=== PATIENT | male | born 1970 | race Caucasian/White ===

== ENCOUNTER 2018-03-23 10:58 | Inpatient (IN) | payer SELFPAY ==
[~2018-03-23] VITALS: Ht 190.5 cm; Wt 113.4 kg
--- NOTE | ~2018-03-23 | CN ---
PATIENT NAME:CRISTI CIFUENTES MEDICAL RECORD: [id number] : 74 LOCATION:[facility] [id number] ADMIT DATE: 03/23/18 ACCOUNT: [id number] CONSULTING PHYSICIAN: KAJAL THORNE MD REFERRING PHYSICIAN: MELODIE MATHIS MD DATE OF CONSULTATION: 03/24/2018 PSYCHIATRIC EVALUATION CONSULTATION IDENTIFYING DATA: The patient is 47 years old and he was admitted to the hospital on a voluntary basis. CHIEF COMPLAINT: None. HISTORY OF PRESENT ILLNESS: The patient presented to the Emergency Room catatonic. He is now verbal and talking to me and although he is denying overt psychotic symptoms, he clearly is seen responding to internal stimuli, not present. He is flat, blunted and not in touch with reality. He denies that he would seek to harm himself, but he does so in a hesitant and pausing manner. He is very disorganized and not able to give me much in the way of useful history. The best I can discern is that he is originally from [facility], but recently moved here and is in a alf program with [facility]. MENTAL STATUS EXAMINATION: The patient is awake, alert and oriented to person, place and somewhat to time and situation. His mood is flat. His affect is constricted. Thought processes are circumstantial. Memory, concentration and abstraction abilities are at least moderately impaired and he denies that he would actively seek to harm himself or others as described above. ASSESSMENT: Schizoaffective disorder. PLAN: The patient is requiring inpatient psychiatric confinement and should be moved to an inpatient facility as soon as practicable. I do believe he is out of touch with reality and potentially a dangerous individual. TRANSINT:[id number] Voice Confirmation ID: [id number] DOCUMENT ID: [id number] KAJAL THORNE MD at 1452 CC: [id number] DICTATION DATE: 03/24/18 1551 HEALTH [employer] OFFICER: 03/24/18 1606 ADM IN [place] [id number] [place] [address]
[2018-03-23 11:26] LABS: UDS - AMPHET NEGATIVE QUAL (NEGATIVE); UDS - BARB NEGATIVE QUAL (NEGATIVE); UDS - BENZO NEGATIVE QUAL (NEGATIVE); UDS - COCAINE NEGATIVE QUAL (NEGATIVE); UDS - OPIATE NEGATIVE QUAL (NEGATIVE); UDS - PCP NEGATIVE QUAL (NEGATIVE); UDS - THC NEGATIVE QUAL (NEGATIVE)
[2018-03-23 11:41] LABS: BASOPHILS 0.2 % (0-2); HEMOGLOBIN 14.9 g/dL (13.5-17.5); IMMATURE GRANULOCYTES 0.2 % (0-5); LYMPHOCYTES 24.2 % (15-50); MCH 32.7 pg (26.0-34.0); MCHC 35.5 g/dL (31.0-37.0); MCV 92.1 fL (80.0-100.0); MEAN PLATELET VOLUME 10.2 fL (7.4-10.4); MONOCYTES 5.1 % (2-11); NEUTROPHILS 69.3 % (40-80); PLATELET COUNT 161 10x3/uL (130-400); RBC 4.56 10x6/uL (4.20-6.10); RDW 12.9 % (11.5-14.5); WBC 9.2 10x3/uL (4.8-10.8)
[2018-03-23 11:44] LABS: ALKALINE PHOSPHATASE 40 U/L (46-116); ALT (SGPT) 23 U/L (10-68); BILIRUBIN - TOTAL 0.45 mg/dL (0.2-1.3); CALC OSMOLALITY 284 mosm/kg (275-300); CALCIUM 9.4 mg/dL (8.5-10.1); CHLORIDE - SERUM 105 mmol/L (98-107); CREATININE - SERUM 0.9 mg/dL (0.6-1.3); GLUCOSE 122 mg/dL (74-106); POTASSIUM - SERUM 3.9 mmol/L (3.5-5.1); PROTEIN - SERUM 8.4 g/dL (6.4-8.2); SODIUM 141 mmol/L (136-145); UREA NITROGEN 21 mg/dL (7-18); eGFR NON AFRICAN AMERICAN > 90 mL/min (90-120)
[2018-03-23 12:06] LABS: CREATINE KINASE 176 UL (21-232); LIPASE 100 U/L (73-393); PRO BNP 38 pg/mL (0-125); THYROID STIMULATING HORMONE 1.58 uIU/mL (0.36-3.74); TROPONIN-I < 0.017 ng/mL (0.000-0.060)
[2018-03-23 13:07] VITALS: BP 163/84
[2018-03-23 16:15] VITALS: BP 140/86
[2018-03-23 17:50] VITALS: BP 143/88
[2018-03-23 20:00] VITALS: BP 116/57
[2018-03-24 09:28] VITALS: BP 169/87
[2018-03-24 10:29] VITALS: BP 169/78; BMI 31.3
[2018-03-24 11:01] LABS: BASOPHILS 0.4 % (0-2); EOSINOPHILS 1.8 % (0-7); HEMATOCRIT 40.9 % (42.0-54.0); HEMOGLOBIN 13.6 g/dL (13.5-17.5); IMMATURE GRANULOCYTES 0.1 % (0-5); LYMPHOCYTES 24.2 % (15-50); MCH 30.2 pg (26.0-34.0); MCHC 33.3 g/dL (31.0-37.0); MCV 90.7 fL (80.0-100.0); MEAN PLATELET VOLUME 10.5 fL (7.4-10.4); MONOCYTES 6.6 % (2-11); NEUTROPHILS 66.9 % (40-80); PLATELET COUNT 157 10x3/uL (130-400); RBC 4.51 10x6/uL (4.20-6.10); RDW 12.7 % (11.5-14.5); WBC 8.4 10x3/uL (4.8-10.8)
[2018-03-24] MEDS ORDERED: ARTANE 5 MG TAB5 MG PO (11:04)
[2018-03-24] MEDS ORDERED: FLOMAX0.4 MG PO (11:05)
[2018-03-24] MEDS ORDERED: GLUCOPHAGE500 MG PO (11:05)
[2018-03-24] MEDS ORDERED: DEPAKOTE500 MG PO (11:05)
[2018-03-24] MEDS ORDERED: INDERAL 40 MG T40 MG PO (11:06)
[2018-03-24] MEDS ORDERED: LOXAPINE25 MG PO (11:06)
[2018-03-24 11:27] LABS: ALBUMIN 3.4 g/dL (3.4-5.0); ALKALINE PHOSPHATASE 37 U/L (46-116); ALT (SGPT) 21 U/L (10-68); BILIRUBIN - TOTAL 0.26 mg/dL (0.2-1.3); CALC OSMOLALITY 280 mosm/kg (275-300); CALCIUM 8.9 mg/dL (8.5-10.1); CARBON DIOXIDE 27.3 mmol/L (21.0-32.0); CHLORIDE - SERUM 103 mmol/L (98-107); CREATININE - SERUM 0.9 mg/dL (0.6-1.3); GLUCOSE 123 mg/dL (74-106); POTASSIUM - SERUM 3.6 mmol/L (3.5-5.1); PROTEIN - SERUM 7.5 g/dL (6.4-8.2); SODIUM 139 mmol/L (136-145); UREA NITROGEN 18 mg/dL (7-18); eGFR NON AFRICAN AMERICAN > 90 mL/min (90-120)
[2018-03-24 13:25] VITALS: BP 155/92
[2018-03-24 14:00] VITALS: Ht 190.5 cm; Wt 113.4 kg
[2018-03-24 20:00] VITALS: BP 123/78
[2018-03-24 22:42] LABS: APPEARANCE CLEAR (CLEAR); BILIRUBIN NEGATIVE (NEGATIVE); COLOR YELLOW (YELLOW); GLUCOSE NEGATIVE (NEGATIVE); KETONE NEGATIVE (NEGATIVE); NITRITE NEGATIVE (NEGATIVE); PROTEIN NEGATIVE (NEGATIVE); UROBILINOGEN NORMAL (NORMAL)
[2018-03-25 05:54] LABS: BASOPHILS 0.4 % (0-2); EOSINOPHILS 3.1 % (0-7); HEMATOCRIT 41.1 % (42.0-54.0); HEMOGLOBIN 14.2 g/dL (13.5-17.5); IMMATURE GRANULOCYTES 0.1 % (0-5); MCH 30.9 pg (26.0-34.0); MCHC 34.5 g/dL (31.0-37.0); MCV 89.3 fL (80.0-100.0); MEAN PLATELET VOLUME 11.2 fL (7.4-10.4); MONOCYTES 7.8 % (2-11); NEUTROPHILS 54.6 % (40-80); PLATELET COUNT 157 10x3/uL (130-400); RDW 12.7 % (11.5-14.5); WBC 8.4 10x3/uL (4.8-10.8)
[2018-03-25 06:01] VITALS: BP 146/86
[2018-03-25 06:28] LABS: ALBUMIN 3.2 g/dL (3.4-5.0); ALKALINE PHOSPHATASE 34 U/L (46-116); ALT (SGPT) 24 U/L (10-68); BILIRUBIN - TOTAL 0.41 mg/dL (0.2-1.3); CALC OSMOLALITY 280 mosm/kg (275-300); CALCIUM 9.1 mg/dL (8.5-10.1); CARBON DIOXIDE 29.7 mmol/L (21.0-32.0); CHLORIDE - SERUM 106 mmol/L (98-107); CREATININE - SERUM 0.8 mg/dL (0.6-1.3); GLUCOSE 116 mg/dL (74-106); POTASSIUM - SERUM 4.1 mmol/L (3.5-5.1); PROTEIN - SERUM 7.3 g/dL (6.4-8.2); SODIUM 140 mmol/L (136-145); UREA NITROGEN 15 mg/dL (7-18); eGFR NON AFRICAN AMERICAN > 90 mL/min (90-120)
[2018-03-25 08:05] VITALS: BP 177/64
[2018-03-25 11:41] VITALS: BP 137/87
[2018-03-25 15:48] VITALS: BP 157/90
[2018-03-25 20:58] VITALS: BP 128/57
[2018-03-26 04:07] VITALS: BP 140/87
[2018-03-26 04:33] LABS: BASOPHILS 0.4 % (0-2); EOSINOPHILS 2.9 % (0-7); HEMATOCRIT 39.9 % (42.0-54.0); IMMATURE GRANULOCYTES 0.1 % (0-5); LYMPHOCYTES 33.3 % (15-50); MCH 30.7 pg (26.0-34.0); MCHC 35.1 g/dL (31.0-37.0); MCV 87.5 fL (80.0-100.0); MEAN PLATELET VOLUME 10.6 fL (7.4-10.4); MONOCYTES 5.6 % (2-11); NEUTROPHILS 57.7 % (40-80); PLATELET COUNT 153 10x3/uL (130-400); RBC 4.56 10x6/uL (4.20-6.10); RDW 12.3 % (11.5-14.5); WBC 9.4 10x3/uL (4.8-10.8)
[2018-03-26 04:54] LABS: ALBUMIN 3.4 g/dL (3.4-5.0); ALKALINE PHOSPHATASE 39 U/L (46-116); ALT (SGPT) 20 U/L (10-68); BILIRUBIN - TOTAL 0.41 mg/dL (0.2-1.3); CALC OSMOLALITY 278 mosm/kg (275-300); CALCIUM 8.6 mg/dL (8.5-10.1); CARBON DIOXIDE 29.4 mmol/L (21.0-32.0); CHLORIDE - SERUM 104 mmol/L (98-107); CREATININE - SERUM 0.8 mg/dL (0.6-1.3); GLUCOSE 105 mg/dL (74-106); PROTEIN - SERUM 7.4 g/dL (6.4-8.2); SODIUM 140 mmol/L (136-145); UREA NITROGEN 13 mg/dL (7-18); eGFR NON AFRICAN AMERICAN > 90 mL/min (90-120)
[2018-03-26 08:28] VITALS: BP 148/89
== END 2018-03-26 10:51 | disposition short-term general hospital (02) | DRG 885 ==
LOC: D.ER 10:58 → D.EDHOLD 13:09 → D.MS 13:09 → D.SDCHOLD 03-24 15:23 → D.MS 03-24 15:24
PROVIDERS: Family Medicine
DX: F25.9 Schizoaffective disorder, unspecified (principal); F06.1 Catatonic disorder due to known physiological condition; G20 Parkinson's disease